=== PATIENT | male | born 1955 | race African-American/Black ===

== ENCOUNTER 2017-06-24 20:54 | Emergency (ER) | payer MEDICARE, OTHER ==
[~2017-06-24] VITALS: Ht 175.3 cm; Wt 70.8 kg
[~2017-06-24 20:54] MED LIST: ACET1TAB23 PO
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
[2017-06-25] MEDS ORDERED: HYDROCODONE/APAP 10/325MG 1 EA TABLET ONE (02:06)
--- NOTE | 2017-06-25 02:09 | NUR ---
[place] given as ordered. Patient discharged to home in stable condition. Written and verbal after care instructions given. Patient verbalizes understanding of instruction. Accompanied by friend going home, no further complaints.
[2017-06-25 02:12] VITALS: BP 138/80
[2017-06-25] MEDS ORDERED: HYDROCODONE/APAP 10/325MG 1 EA TABLET PO ONE (02:30)
== END 2017-06-25 02:12 | disposition home or self-care (01) ==
LOC: ER 20:57
DX: M54.5 Low back pain (principal); G89.29 Other chronic pain; I10 Essential (primary) hypertension; Y04.0XXA Assault by unarmed brawl or fight, initial encounter; Y92.89 Other specified places as the place of occurrence of the external cause; Y93.89 Activity, other specified; Y99.8 Other external cause status
CPT/HCPCS: 99283; A4606; Z7610

== ENCOUNTER 2019-10-07 09:06 | Emergency (ER) | payer BC, OTHER ==
[~2019-10-07] VITALS: Ht 175.3 cm; Wt 67.6 kg
[2019-10-07 09:16] VITALS: BP 142/97
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
--- NOTE | 2019-10-07 09:41 | NUR ---
PT REFUSED TREATMENT ASND MEDICATION. PT REFUSED TO SIGN AMA FORM.
[2019-10-07] MEDS ORDERED: HYDROCODONE/APAP 5/325MG 1 EACH TABLET PO ONE (10:00)
== END 2019-10-07 09:45 | disposition left against medical advice (07) ==
LOC: ER 09:06
DX: M54.5 Low back pain (principal); I10 Essential (primary) hypertension; W01.0XXA Fall on same level from slipping, tripping and stumbling without subsequent striking against object, initial encounter; Y93.01 Activity, walking, marching and hiking; Y92.89 Other specified places as the place of occurrence of the external cause; Y99.8 Other external cause status

== ENCOUNTER 2021-02-09 09:14 | Emergency (ER) | payer OTHER ==
[~2021-02-09] VITALS: Ht 175.3 cm; Wt 68.0 kg
[2021-02-09] MEDS ORDERED: HYDR-3972 PO (10:23)
--- NOTE | 2021-02-09 10:55 | NUR ---
Patient discharged to home in stable condition. Written and verbal after care instructions given. Patient verbalizes understanding of instruction.
[2021-02-09 10:57] VITALS: BP 132/91
== END 2021-02-09 10:57 | disposition home or self-care (01) ==
LOC: ER 09:19
DX: M84.374A Stress fracture, right foot, initial encounter for fracture (principal); I10 Essential (primary) hypertension; Z79.899 Other long term (current) drug therapy; X50.1XXA Overexertion from prolonged static or awkward postures, initial encounter; Y93.89 Activity, other specified; Y92.89 Other specified places as the place of occurrence of the external cause; Y99.8 Other external cause status
CPT/HCPCS: 73610-TC; 73630-TC

== ENCOUNTER 2023-09-25 10:02 | Emergency (ER) | payer OTHER ==
[~2023-09-25] VITALS: Ht 175.3 cm; Wt 72.6 kg
[~2023-09-25 10:02] MED LIST changes: +HYDR-3972 PO
[2023-09-25] MEDS ORDERED: MORPHINE SULFATE INJ 4 MG/ML DISP.SYRIN ONE (11:50)
[2023-09-25] MEDS ORDERED: HYDR-3980 PO (11:58)
[2023-09-25] MEDS ORDERED: MORPHINE SULFATE INJ 2 MG/ML DISP.SYRIN IV ONE (12:00)
[2023-09-25 12:09] VITALS: BP 167/82; TEMP 98.3; O2SAT 98
== END 2023-09-25 12:10 | disposition home or self-care (01) ==
LOC: ER 10:23
DX: S82.891A Other fracture of right lower leg, initial encounter for closed fracture (principal); I10 Essential (primary) hypertension; Z98.890 Other specified postprocedural states; Z79.899 Other long term (current) drug therapy; X58.XXXA Exposure to other specified factors, initial encounter; Y93.89 Activity, other specified; Y92.89 Other specified places as the place of occurrence of the external cause; Y99.8 Other external cause status
CPT/HCPCS: 29515; 96374; 99283; J2270

== ENCOUNTER 2024-02-18 10:53 | Emergency (ER) | payer OTHER ==
[~2024-02-18] VITALS: Ht 175.3 cm; Wt 72.6 kg
[~2024-02-18 10:53] MED LIST changes: +HYDR-3980 PO
[2024-02-18] MEDS ORDERED: KETOROLAC TROMETHAMINE 15 MG/ML VIAL ONE (11:38)
[2024-02-18] MEDS: KETOROLAC TROMETHAMINE 15 MG/ML VIAL IM ONE (11:48)
[2024-02-18] MEDS ORDERED: CYCL5TAB PO (11:52)
[2024-02-18] MEDS ORDERED: HYDR-4303 PO (11:52)
[2024-02-18] MEDS ORDERED: METH4TAB17 PO (11:52)
[2024-02-18] MEDS ORDERED: IBUP-1955 PO (11:52)
[2024-02-18] MEDS ORDERED: LIDO30AD10 TP (11:52)
[2024-02-18 12:05] VITALS: BP 150/85; TEMP 98.2; O2SAT 99
== END 2024-02-18 12:06 | disposition home or self-care (01) ==
LOC: ER 11:00
DX: M54.50 Low back pain, unspecified (principal); I10 Essential (primary) hypertension; Z79.899 Other long term (current) drug therapy
CPT/HCPCS: 99283; 96372; J1885

== ENCOUNTER 2024-06-11 07:15 | Emergency (ER) | payer OTHER ==
[~2024-06-11] VITALS: Ht 175.3 cm; Wt 73.0 kg
[~2024-06-11 07:15] MED LIST changes: +CYCL5TAB PO; +HYDR-4303 PO; +IBUP-1955 PO; +LIDO30AD10 TP; +METH4TAB17 PO
[2024-06-11] MEDS ORDERED: predniSONE 20 MG TABLET ONE (08:02)
[2024-06-11] MEDS: predniSONE 20 MG TABLET PO ONE (08:04)
[2024-06-11] MEDS ORDERED: IPRATROPIUM NEB FS 0.5 MG/2.5 ML AMPUL.NEB ONE (08:24)
[2024-06-11] MEDS ORDERED: ALBUTEROL FS 2.5 MG/3 ML VIAL.NEB ONE (08:24)
[2024-06-11] MEDS: ALBUTEROL FS 2.5 MG/3 ML VIAL.NEB CONTNEB ONE (08:32)
[2024-06-11] MEDS: IPRATROPIUM NEB FS 0.5 MG/2.5 ML AMPUL.NEB NEB ONE (08:32)
[2024-06-11 08:33] VITALS: O2SAT 97
[2024-06-11 08:48] VITALS: O2SAT 100
[2024-06-11 08:49] VITALS: O2SAT 100
[2024-06-11 08:59] VITALS: O2SAT 100
[2024-06-11] MEDS ORDERED: PRED50TA PO (09:27)
[2024-06-11] MEDS ORDERED: ALBU8.5H8 INH (09:27)
[2024-06-11 09:44] VITALS: BP 149/106; TEMP 98; O2SAT 97
== END 2024-06-11 09:44 | disposition home or self-care (01) ==
LOC: ER 07:34
DX: J42 Unspecified chronic bronchitis (principal); I10 Essential (primary) hypertension; J45.909 Unspecified asthma, uncomplicated
CPT/HCPCS: 71045; 93005; 94640 ×2; J7512

== ENCOUNTER 2024-06-23 10:57 | Emergency (ER) | payer OTHER ==
[~2024-06-23] VITALS: Ht 175.3 cm; Wt 73.0 kg
[~2024-06-23 10:57] MED LIST changes: +ALBU8.5H8 INH; +PRED50TA PO
[2024-06-23] MEDS ORDERED: HYDROCODONE/APAP 10/325MG TABLET ONE (11:46)
[2024-06-23] MEDS ORDERED: KETOROLAC TROMETHAMINE 15 MG/ML VIAL ONE (11:46)
[2024-06-23] MEDS: HYDROCODONE/APAP 10/325MG TABLET PO ONE (11:58)
[2024-06-23] MEDS: KETOROLAC TROMETHAMINE 15 MG/ML VIAL IM ONE (11:58)
[2024-06-23 12:23] VITALS: BP 135/71; TEMP 98.7; O2SAT 100
== END 2024-06-23 12:23 | disposition home or self-care (01) ==
LOC: ER 10:59
DX: G89.29 Other chronic pain (principal); M54.50 Low back pain, unspecified; I10 Essential (primary) hypertension
CPT/HCPCS: 99283; 96372; J1885